=== PATIENT | female | born 1955 | race Hispanic/Latino ===

== ENCOUNTER 2018-10-16 08:24 | Day surgery (SDC) | payer BC ==
[2018-10-16] MEDS ORDERED: TETRACAINE 0.5% OS PRN (08:48)
[2018-10-16] MEDS: VIGAMOX OS SCH ×3 (09:10→09:20)
[2018-10-16] MEDS ORDERED: VERSED ONE ×2 (09:44→11:02)
[2018-10-16] MEDS ORDERED: SUBLIMAZE ONE (09:45)
[2018-10-16] MEDS ORDERED: BSS OS ONE (11:11)
--- NOTE | 2018-10-16 11:21 | Operative Report ---
Operative Report Operative Report: 10/16/2018 PREOPERATIVE DIAGNOSIS: Severe dry eyes and Anitha nodules left eye POSTOPERATIVE DIAGNOSIS: Same OPERATIVE PROCEDURE: Excision of of Salzmann nodule and amniotic graft membrane left eye SURGEON: Sadie Carrillo M.D. BILL CHECKER SURGEON: none ANESTHESIA: Monitored anesthesia care SPINNING BATH PATROLLER: COMPLICATIONS: None ALLERGIES: NKDA PREOPERATIVE NOTE: The risks, benefits and alternatives of surgery were explained to the patient who after confirmining understanding elected to pro ceed with surgery. The risks discussed included but were not limited to infection, further surgery, loss of vision, loss of the eye. The patient had multiple opportunities to ask questions and have them answered. Preoperative instruction sheet was provided and explained to the patient and/or family. PROGNOSIS: Excellent INDICATIONS FOR SURGERY: Distortion of vision from the lesion. Without treat ment, permanent visual loss is expected. OPERATIVE REPORT: The patient was taken into the preoperative area and then sedated and monitored by Anesthesia. The patient was prepped by applying a Betadine scrub to the periorbital area, the adjacent cheek, and the forehead. The prepped areas were dried with sterile gauze. The patient was draped, and a speculum was placed between the eyelids. The nodule was dissected off the cornea with a Tooke knife. Fine-tooth forceps were used carefully to elevate the graft and moved to thecornea. It was moved carefully to make sure that first of all the epithelial side remained upward . After the graft was found to be suitable for the area to be covered, it was sutured using 10-0 nylon superiorly and inferiorly. MEDICATIONS APPLIED AT END OF SURGERY: bandage Contact lens was placed onto the eye fallowed by the application of Vigamox. DISCHARGE SUMMARY: The patient was released in stable condition. The patient and those with the patient were given a written sheet of postoperative instructions and counseling on any abnormal laboratory studies. They are to call immediately for difficulties.
--- NOTE | 2018-10-16 11:22 | Short Stay Summary ---
Short Stay Documentation Date of service: 10/16/18 - History H&P: obtained from office - Allergies and Medications Current Medications: Allergies Penicillins Allergy (Verified 10/14/18 14:03) Itching, rash Home Medications Medication Instructions Recorded Confirmed Last Taken Type Celecoxib [celeBREX] 200 mg PO DAILY 10/14/18 10/14/18 10/15/18 History Escitalopram [Lexapro] 10 mg PO DAILY 10/14/18 10/14/18 10/15/18 History Levothyroxine [Synthroid] 100 mcg PO QAM 10/14/18 10/16/18 10/15/18 10:00 History Ranitidine HCl [Zantac 150 MG TAB] 150 mg PO DAILY 10/14/18 10/14/18 10/15/18 History metFORMIN [Glucophage] 500 mg PO BID 10/14/18 10/16/18 10/15/18 17:00 History Active Medications Moxifloxacin HCl (Vigamox) 1 drops OS Q5MIN [facility] Stop: 10/16/18 23:59 Last Admin: 10/16/18 09:20 Dose: 1 drops Documented by: Prednisolone Acetate (Pred Forte 1%) 1 drops OS QID [facility] Tetracaine HCl (Tetracaine 0.5%) 1 drops OS Q5M PRN PRN Reason: Pain, Mild (1-3) Stop: 10/16/18 23:59 Last Admin: 10/16/18 09:09 Dose: 1 drops Documented by: - Brief post op/procedure progress note Date of procedure: 10/16/18 Pre-op diagnosis: Anitha nodule left eye Post-op diagnosis: same Procedure: Anterior lamellar keratectomy left eye Anesthesia: MAC, local Surgeon: LYNN RATLIFF Estimated blood loss: none Pathology: none Condition: stable - Disposition Condition at discharge: Good Disposition: DC-01 TO HOME OR SELFCARE - Discharge Diagnoses (1) 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
[2018-10-16] MEDS ORDERED: PRED FORTE 1% OS SCH (14:00)
--- NOTE | 2018-10-16 14:20 | Anesthesia Consultation ---
Anesthesia Consult and Med Hx Date of service: 10/16/18 - Airway Anesthetic Teeth Evaluation: Good ROM Head & Neck: Adequate Mental/Hyoid Distance: Adequate Mallampati Class: Class III Intubation Access Assessment: Possibly Difficult - Pulmonary Exam CTA: Yes - Cardiac Exam Cardiac Exam: RRR - Pre-Operative Health Status ASA Pre-Surgery Classification: ASA3 Proposed Anesthetic Plan: MAC - Pulmonary Hx Sleep Apnea: Yes (No CPAP) - Central Nervous System Hx Seizures: Yes (As an infant) Hx Psychiatric Problems: No - Other Systems Hx Alcohol Use: Yes (Occas) Hx Cancer: No
--- NOTE | 2018-10-16 14:20 | Anesthesia Day of Surgery ---
Anesthesia Day of Surgery - Day of Surgery Patient Examined: Yes Patient H&P Reviewed: Yes Patient is NPO: Yes
--- NOTE | 2018-10-16 14:22 | Post Anesthesia Evaluation ---
- Post Anesthesia Evaluation Patient Participated: Yes Airway Patent: Yes Stable Respiratory Function: Yes Nausea/Vomiting: No Temp > 96.8F: Yes Pain Manageable: Yes Adequeate Hydration: Yes Anesthesia Complications: No
[2018-10-16 18:11] VITALS: BP 108/66
== END 2018-10-16 12:55 | disposition home or self-care (01) ==
LOC: OR 08:24
DX: H18.452 Nodular corneal degeneration, left eye (principal); G47.30 Sleep apnea, unspecified; M19.90 Unspecified osteoarthritis, unspecified site; K21.9 Gastro-esophageal reflux disease without esophagitis; Z90.49 Acquired absence of other specified parts of digestive tract; Z72.89 Other problems related to lifestyle; Z98.890 Other specified postprocedural states; Z79.899 Other long term (current) drug therapy; Z98.42 Cataract extraction status, left eye; Z98.41 Cataract extraction status, right eye; Z88.0 Allergy status to penicillin; Z79.84 Long term (current) use of oral hypoglycemic drugs
CPT/HCPCS: 65400; 65780; 82962; J2250; J3010

== ENCOUNTER 2018-12-25 07:27 | Day surgery (SDC) | payer BC ==
[2018-12-25] MEDS ORDERED: TETRACAINE 0.5% ONE (08:43)
[2018-12-25] MEDS: AK-Dilate OD SCH ×3 (08:50→09:00)
[2018-12-25] MEDS: MYDRIACYL OD SCH ×3 (08:50→09:00)
[2018-12-25] MEDS: VIGAMOX OD SCH ×3 (08:50→09:00)
--- NOTE | 2018-12-25 09:22 | Anesthesia Consultation ---
Anesthesia Consult and Med Hx Date of service: 12/25/18 - Airway Anesthetic Teeth Evaluation: Good ROM Head & Neck: Adequate Mental/Hyoid Distance: Adequate Mallampati Class: Class I Intubation Access Assessment: Good - Pulmonary Exam CTA: Yes - Cardiac Exam Cardiac Exam: RRR - Pre-Operative Health Status ASA Pre-Surgery Classification: ASA3 Proposed Anesthetic Plan: MAC - Pulmonary Hx Smoking: No Hx Sleep Apnea: Yes (no CPAP) - Cardiovascular System Hx Hypertension: No Hx Heart Attack/AMI: No - Central Nervous System CVA: No Hx Psychiatric Problems: Yes (anxiety) - Gastrointestinal Hx Gastroesophageal Reflux Disease: Yes - Endocrine Hx Hypothyroidism: Yes - Other Systems Hx Alcohol Use: Yes (Occas) Hx Substance Use: No Hx Cancer: No
--- NOTE | 2018-12-25 09:23 | Anesthesia Day of Surgery ---
Anesthesia Day of Surgery - Day of Surgery Patient Examined: Yes Patient H&P Reviewed: Yes Patient is NPO: Yes
[2018-12-25] MEDS ORDERED: TETRACAINE 0.5% OD NR (09:30)
[2018-12-25] MEDS ORDERED: VERSED ONE (09:43)
[2018-12-25] MEDS ORDERED: SUBLIMAZE ONE (09:43)
[2018-12-25] MEDS ORDERED: MIOSTAT OD ONE (10:16)
--- NOTE | 2018-12-25 10:26 | Operative Report ---
Operative Report Operative Report: PATIENT'S NAME: DATE OF : DATE OF SURGERY: 12/25/2018 PREOPERATIVE DIAGNOSIS: Cataract and Astigmatism right Eye POSTOPERATIVE DIAGNOSIS: Same OPERATIVE PROCEDURE: Phacoemulsification with intraocular lens implantation, right eye Toric SURGEON: Sadie Carrillo M.D. LENS: [id number] 9.5 at 150 ANESTHESIA: Monitored anesthesia care in combination with topical and intracameral anesthesia because of the established specific risk of reflux, arrhythmias, or anxiety attacks associated with ocular manipulation, as well as the difficulty of the sports analyst to manage such potentially catastrophic events while simultaneously attempting to complete the surgical procedure and was deemed necessary for the patient's safety to have a Nurse Digitizer present during the procedure whenever possible. A Nurse Digitizer was utilized to regulate the intravenous sedation of the patient so the patient was cooperative yet not asleep in order for the patient to successfully maintain fixation of the eye on the operating light of the microscope. COMPLICATIONS: No surgical complications. No blood loss. ALLERGIES: Penicillin PROGNOSIS: Excellent INDICATIONS FOR SURGERY: The patient is undergoing surgery in the hopes of eliminating or improving these visual difficulties. PROCEDURE: After arriving at the surgery center, the patient was given topical anesthetic and dilating drops, as noted in the record. The patient was then taken into the operating room and given more anesthetic drops. The eyelids, lashes, and lid margins were scrubbed with Betadine solution, and the patient was draped. The Nurse Digitizer administered IV sedation and monitored the patient during the procedure. A speculum was placed between the eyelids, and the patient was asked to fixate on the light of the microscope. The patient has been noted to have pre-existing astigmatism as well as a concern to be left with as little astigmatism as possible after surgery in order to improve their uncorrected visual acuity after surgery.~ They have, therefore, elected to have our option for astigmatism management and have signed a waiver acknowledging their understanding of the process, its benefits and risks, and wish to proceed with this option. Based on the preoperative evaluation of the topography of their corneal mapping of astigmatism, the wound orientation, wound size, and use of a relaxing incision have been utilized to minimize their post operative astigmatism. In some cases a toric, or astigmatic, intraocular lens implant may be used in conjunction with a relaxing incision or in place of one. When an astigmatic lens is used, preoperative evaluation of the topography with careful planning of the lens position and power of the astigmatic correction by lens are all done. ~The calculation of the lens power for the astigmatic correction and the lens orientation of the astigmatic lens is performed separately and subsequently from the normal lens power calculation for the standard cataract lens power needed for standard surgery without astigmatism management. ~In fact, the toric lens power calculation can not be done until the standard lens power calculations are performed and finished - so that is a totally separate part of the preoperative planning. The eye was then fixated with a round martinez, which would damage the conjunctival tissues or vessel, and a stab incision was made in the peripheral clear cornea into the anterior chamber. Viscoelastic was next used to fill the anterior chamber. The eye was once again fixated with the round martinez and a keratome was used make an incision in clear cornea peripherally on my right hand side temporally. Hydrodissection was carried out utilizing a U-shaped cannula and balanced salt solution to delineate the cortical material from the capsule and the nucleus from the cortical material. The phaco tip was introduced into the eye and used to remove the anterior cortical material in the area of the capsulotomy. Then the phaco tip was buried into the nucleus, and a chopping instrument was introduced into the eye and used to provide countertraction in the nucleus between this instrument and the phaco tip fracturing the nucleus. This procedure was repeated multiple times, providing multiple small segments of the lens, and then the phaco tip was used to remove each of these segments. An I/A tip was then used to remove the remaining cortex. An one-piece, acrylic intraocular lens was then placed into an inserting cartridge. The tip of the inserting cartridge was introduced into the keratome incision and into the anterior chamber. The implant was gently advanced through the cartridge and into the eye, where it unfolded, and both haptics were placed in the capsular bag, where it centered nicely and appeared to be well fixated. Prior to prepping the patient, the patient was asked to sit up on the operative bed and look across the room. ~Utilizing a special marking instrument, the cardinal meridians at 3:00, 6:00, and 9:00 were marked with Gentian lamar.~ These lisa were used later in the surgery as reference lisa to identify the proper location of the axis for the placement of the astigmatic, or toric, intraocular lens.~ The axis was marked with Gentian lamar prior to entering the eye.~ After placement of the intraocular lens implant and removal of the viscoelastic from both the capsular bag and anterior chamber, the lens was positioned so it was perfectly aligned along this axis. The orientation was rechecked once the wounds were hydrated and the integrity of the wounds was verified. After placement of the intraocular lens, the I~and~A handpiece was placed back into the eye and used to remove the viscoelastic, including viscoelastic that was behind the optic of the intraocular lens. The anterior chamber was then filled with balanced salt solution, and hydration of the wound was used to cause swelling of the wound and more appropriate watertight closure. When the wound was found to be firm, the patient was asked to comment on how bright the light was. If there was no light perception at all or if the light was substantially dimmer than during the rest of the surgery, the amount of fluid in the eye was decompressed to lower the intraocular pressure until the patient could see the bright light again. This was done to avoid any damage or decreased blood flow to the optic nerve. MEDICATIONS APPLIED AT END OF SURGERY: One drop vigamox and Pred Forte The patient was given a shield to wear at night and was instructed not to rub or push on the eye. DISCHARGE SUMMARY: The patient was released in stable condition. The patient and those with the patient were given a written sheet of postoperative instructions and counseling on any abnormal laboratory studies. The patient is to see us tomorrow for follow-up in the office and is to call immediately for any difficulties. Sadie Carrillo M.D. Date
--- NOTE | 2018-12-25 10:27 | Short Stay Summary ---
Short Stay Documentation Date of service: 12/25/18 - History H&P: obtained from office - Allergies and Medications Current Medications: Allergies Penicillins Allergy (Verified 12/24/18 16:40) Itching, rash Home Medications Medication Instructions Recorded Confirmed Last Taken Type Celecoxib [celeBREX] 200 mg PO DAILY 10/14/18 12/24/18 12/24/18 History Escitalopram [Lexapro] 10 mg PO DAILY 10/14/18 12/24/18 12/24/18 History Levothyroxine [Synthroid] 100 mcg PO QAM 10/14/18 12/25/18 12/25/18 04:00 History Ranitidine HCl [Zantac 150 MG TAB] 150 mg PO DAILY 10/14/18 12/24/18 12/24/18 History metFORMIN [Glucophage] 500 mg PO BID 10/14/18 12/24/18 12/24/18 History Active Medications Acetazolamide (Diamox) 500 mg PO ONCE ONE Stop: 12/25/18 10:31 Moxifloxacin HCl (Vigamox) 1 drops OD Q5MIN [facility] Stop: 12/25/18 23:59 Last Admin: 12/25/18 09:00 Dose: 1 drops Documented by: Phenylephrine HCl (Ak-Dilate) 1 drops OD Q5MIN [facility] Stop: 12/25/18 23:59 Last Admin: 12/25/18 09:00 Dose: 1 drops Documented by: Prednisolone Acetate (Pred Forte 1%) 1 drops OD QID [facility] Tropicamide (Mydriacyl) 1 drops OD Q5MIN [facility] Stop: 12/25/18 23:59 Last Admin: 12/25/18 09:00 Dose: 1 drops Documented by: - Brief post op/procedure progress note Date of procedure: 12/25/18 Pre-op diagnosis: cataract and astigmatism right eye Post-op diagnosis: same Procedure: Phacoemulsification retired lens insertion right eye Anesthesia: MAC, local Surgeon: LYNN RATLIFF Estimated blood loss: none Pathology: none Condition: stable - Disposition Condition at discharge: Good Disposition: DC-01 TO HOME OR SELFCARE - Discharge Diagnoses (1) Cortical age-related cataract of right eye Status: Resolved (2) Astigmatism of right eye Status: Resolved Qualifiers: Astigmatism type: regular Qualified Code(s): H52.221 - Regular astigmatism, right eye Short Stay Discharge Plan Follow up with: JORDY HORNE [Other] - 7 Days
[2018-12-25] MEDS ORDERED: DIAMOX PO ONE (10:30)
[2018-12-25] MEDS ORDERED: PRED FORTE 1% ONE (10:46)
[2018-12-25 11:03] VITALS: BP 128/78
[2018-12-25] MEDS ORDERED: PRED FORTE 1% OD SCH (14:00)
== END 2018-12-25 11:07 | disposition home or self-care (01) ==
LOC: OR 07:27
DX: E11.36 Type 2 diabetes mellitus with diabetic cataract (principal); H25.011 Cortical age-related cataract, right eye; H52.201 Unspecified astigmatism, right eye; H18.452 Nodular corneal degeneration, left eye; G47.30 Sleep apnea, unspecified; K21.9 Gastro-esophageal reflux disease without esophagitis; M19.90 Unspecified osteoarthritis, unspecified site; E03.9 Hypothyroidism, unspecified; F41.9 Anxiety disorder, unspecified; Z98.890 Other specified postprocedural states; Z80.3 Family history of malignant neoplasm of breast; Z80.8 Family history of malignant neoplasm of other organs or systems; Z79.899 Other long term (current) drug therapy; Z79.84 Long term (current) use of oral hypoglycemic drugs; Z98.42 Cataract extraction status, left eye; Z90.49 Acquired absence of other specified parts of digestive tract; Z90.710 Acquired absence of both cervix and uterus; Z72.89 Other problems related to lifestyle
CPT/HCPCS: 66984; 82962; J2250; J3010; V2630

== ENCOUNTER 2019-01-08 06:18 | Day surgery (SDC) | payer BC ==
[~2019-01-08 06:18] MED LIST: MIOSTAT ONE; TETRACAINE 0.5% OS PRN
[2019-01-08] MEDS: AK-Dilate OS SCH ×3 (07:00→07:10)
[2019-01-08] MEDS: VIGAMOX OS SCH ×3 (07:00→07:10)
[2019-01-08] MEDS: MYDRIACYL OS SCH ×3 (07:00→07:10)
[2019-01-08] MEDS ORDERED: VERSED ONE (07:25)
[2019-01-08] MEDS ORDERED: SUBLIMAZE ONE (07:26)
--- NOTE | 2019-01-08 07:34 | Anesthesia Consultation ---
Anesthesia Consult and Med Hx Date of service: 01/08/19 - Airway Anesthetic Teeth Evaluation: Good ROM Head & Neck: Adequate Mental/Hyoid Distance: Adequate Mallampati Class: Class II Intubation Access Assessment: Good - Pulmonary Exam CTA: Yes - Cardiac Exam Cardiac Exam: No Murmur - Pre-Operative Health Status ASA Pre-Surgery Classification: ASA3 Proposed Anesthetic Plan: MAC - Pulmonary Hx Smoking: No Hx Sleep Apnea: Yes (No CPAP) - Cardiovascular System Hx Hypertension: No Hx Heart Attack/AMI: No - Central Nervous System Hx Seizures: Yes (As an infant) CVA: No Hx Psychiatric Problems: Yes - Gastrointestinal Hx Gastroesophageal Reflux Disease: Yes - Endocrine Hx Hypothyroidism: Yes - Other Systems Hx Alcohol Use: Yes (Occas) Hx Cancer: No
--- NOTE | 2019-01-08 07:34 | Anesthesia Day of Surgery ---
Anesthesia Day of Surgery - Day of Surgery Patient Examined: Yes Patient H&P Reviewed: Yes Patient is NPO: Yes
[2019-01-08] MEDS ORDERED: PRED FORTE 1% ONE (07:48)
[2019-01-08] MEDS ORDERED: MIOSTAT OS ONE (08:01)
[2019-01-08] MEDS ORDERED: WATER FOR IRRIG STERILE IR ONE (08:01)
[2019-01-08] MEDS ORDERED: DIAMOX PO NR (08:16)
[2019-01-08] MEDS ORDERED: DIAMOX ONE (08:37)
--- NOTE | 2019-01-08 08:47 | Operative Report ---
Operative Report Operative Report: PATIENT'S NAME: DATE OF : DATE OF SURGERY: 01/08/2019 PREOPERATIVE DIAGNOSIS: Cataract and Astigmatism left Eye POSTOPERATIVE DIAGNOSIS: Same OPERATIVE PROCEDURE: Phacoemulsification with intraocular lens implantation, left eye Toric SURGEON: Sadie Carrillo M.D. LENS: [id number] 11.5 AT 95 ANESTHESIA: Monitored anesthesia care in combination with topical and intracameral anesthesia because of the established specific risk of reflux, arrhythmias, or anxiety attacks associated with ocular manipulation, as well as the difficulty of the fly raiser lockstitch to manage such potentially catastrophic events while simultaneously attempting to complete the surgical procedure and was deemed necessary for the patient's safety to have a Nurse Director Of Restaurant present during the procedure whenever possible. A Nurse Director Of Restaurant was utilized to regulate the intravenous sedation of the patient so the patient was cooperative yet not asleep in order for the patient to successfully maintain fixation of the eye on the operating light of the microscope. COMPLICATIONS: No surgical complications. No blood loss. ALLERGIES: PCN PROGNOSIS: Excellent INDICATIONS FOR SURGERY: The patient is undergoing surgery in the hopes of eliminating or improving these visual difficulties. PROCEDURE: After arriving at the surgery center, the patient was given topical anesthetic and dilating drops, as noted in the record. The patient was then taken into the operating room and given more anesthetic drops. The eyelids, lashes, and lid margins were scrubbed with Betadine solution, and the patient was draped. The Nurse Director Of Restaurant administered IV sedation and monitored the patient during the procedure. A speculum was placed between the eyelids, and the patient was asked to fixate on the light of the microscope. The patient has been noted to have pre-existing astigmatism as well as a concern to be left with as little astigmatism as possible after surgery in order to improve their uncorrected visual acuity after surgery.~ They have, therefore, elected to have our option for astigmatism management and have signed a waiver acknowledging their understanding of the process, its benefits and risks, and wish to proceed with this option. Based on the preoperative evaluation of the topography of their corneal mapping of astigmatism, the wound orientation, wound size, and use of a relaxing incision have been utilized to minimize their post operative astigmatism. In some cases a toric, or astigmatic, intraocular lens implant may be used in conjunction with a relaxing incision or in place of one. When an astigmatic lens is used, preoperative evaluation of the topography with careful planning of the lens position and power of the astigmatic correction by lens are all done. ~The calculation of the lens power for the astigmatic correction and the lens orientation of the astigmatic lens is performed separately and subsequently from the normal lens power calculation for the standard cataract lens power needed for standard surgery without astigmatism management. ~In fact, the toric lens power calculation can not be done until the standard lens power calculations are performed and finished - so that is a totally separate part of the preoperative planning. The eye was then fixated with a round martinez, which would damage the conjunctival tissues or vessel, and a stab incision was made in the peripheral clear cornea into the anterior chamber. Viscoelastic was next used to fill the anterior chamber. The eye was once again fixated with the round martinez and a keratome was used make an incision in clear cornea peripherally on my right hand side temporally. Hydrodissection was carried out utilizing a U-shaped cannula and balanced salt solution to delineate the cortical material from the capsule and the nucleus from the cortical material. The phaco tip was introduced into the eye and used to remove the anterior cortical material in the area of the capsulotomy. Then the phaco tip was buried into the nucleus, and a chopping instrument was introduced into the eye and used to provide countertraction in the nucleus between this instrument and the phaco tip fracturing the nucleus. This procedure was repeated multiple times, providing multiple small segments of the lens, and then the phaco tip was used to remove each of these segments. An I/A tip was then used to remove the remaining cortex. An one-piece, acrylic intraocular lens was then placed into an inserting c artridge. The tip of the inserting cartridge was introduced into the keratome incision and into the anterior chamber. The implant was gently advanced through the cartridge and into the eye, where it unfolded, and both haptics were placed in the capsular bag, where it centered nicely and appeared to be well fixated. Prior to prepping the patient, the patient was asked to sit up on the operative bed and look across the room. ~Utilizing a special marking instrument, the cardinal meridians at 3:00, 6:00, and 9:00 were marked with Gentian lamar.~ These lisa were used later in the surgery as reference lisa to identify the proper location of the axis for the placement of the astigmatic, or toric, intraocular lens.~ The axis was marked with Gentian lamar prior to entering the eye.~ After placement of the intraocular lens implant and removal of the viscoelastic from both the capsular bag and anterior chamber, the lens was positioned so it was perfectly aligned along this axis. The orientation was rechecked once the wounds were hydrated and the integrity of the wounds was verified. After placement of the intraocular lens, the I~and~A handpiece was placed back into the eye and used to remove the viscoelastic, including viscoelastic that was behind the optic of the intraocular lens. The anterior chamber was then filled with balanced salt solution, and hydration of the wound was used to cause swelling of the wound and more appropriate watertight closure. When the wound was found to be firm, the patient was asked to comment on how bright the light was. If there was no light perception at all or if the light was substantially dimmer than during the rest of the surgery, the amount of fluid in the eye was decompressed to lower the intraocular pressure until the patient could see the bright light again. This was done to avoid any damage or decreased blood flow to the optic nerve. MEDICATIONS APPLIED AT END OF SURGERY: One drop vigamox and Pred Forte The patient was given a shield to wear at night and was instructed not to rub or push on the eye. DISCHARGE SUMMARY: The patient was released in stable condition. The patient and those with the patient were given a written sheet of postoperative instructions and counseling on any abnormal laboratory studies. The patient is to see us tomorrow for follow-up in the office and is to call immediately for any difficulties. Sadie Carrillo M.D. Date
--- NOTE | 2019-01-08 08:48 | Short Stay Summary ---
Short Stay Documentation Date of service: 01/08/19 - History H&P: obtained from office - Allergies and Medications Current Medications: Allergies Penicillins Allergy (Verified 01/07/19 12:28) Itching, rash Home Medications Medication Instructions Recorded Confirmed Last Taken Type Celecoxib [celeBREX] 200 mg PO DAILY 10/14/18 01/08/19 01/07/19 History Escitalopram [Lexapro] 10 mg PO DAILY 10/14/18 01/08/19 01/07/19 History Levothyroxine [Synthroid] 100 mcg PO QAM 10/14/18 01/08/19 01/07/19 History Ranitidine HCl [Zantac 150 MG TAB] 150 mg PO DAILY 10/14/18 01/08/19 01/07/19 History metFORMIN [Glucophage] 500 mg PO BID 10/14/18 01/08/19 01/07/19 History Active Medications Acetazolamide (Diamox) 500 mg PO ONCE NR Stop: 01/08/19 10:00 Last Admin: 01/08/19 08:39 Dose: 500 mg Documented by: Moxifloxacin HCl (Vigamox) 1 drops OS Q5M MECHE Phenylephrine HCl (Ak-Dilate) 1 drops OS Q5M MECHE Prednisolone Acetate (Pred Forte 1%) 1 drops OS ONCE NR Stop: 01/08/19 20:00 Last Admin: 01/08/19 08:25 Dose: 1 drops Documented by: Tetracaine HCl (Tetracaine 0.5%) 1 drops OS Q5M PRN PRN Reason: DIRECTED Tropicamide (Mydriacyl) 1 drops OS Q5M MECHE - Brief post op/procedure progress note Date of procedure: 01/08/19 Pre-op diagnosis: Recommend astigmatism left eye Post-op diagnosis: same Procedure: Phacoemulsification with toric lens insertion left eye Anesthesia: MAC, local Surgeon: LYNN RATLIFF Estimated blood loss: none Pathology: none Condition: stable - Disposition Condition at discharge: Good Disposition: DC-01 TO HOME OR SELFCARE - Discharge Diagnoses (1) Cortical age-related cataract of left eye Status: Resolved (2) Astigmatism of left eye Status: Resolved Qualifiers: Astigmatism type: regular Qualified Code(s): H52.222 - Regular astigmatism, left eye Short Stay Discharge Plan Additional Instructions: FOLLOW SURGEON INSTRUCTION SHEETS. Follow up with: JUANA HORNE MD [Primary Care Provider] - 7 Days Forms: Outpatient Surgery DC Inst.
[2019-01-08] MEDS ORDERED: PRED FORTE 1% OS NR (09:00)
[2019-01-08 14:39] VITALS: BP 128/68
== END 2019-01-08 09:00 | disposition home or self-care (01) ==
LOC: OR 06:18
DX: E11.36 Type 2 diabetes mellitus with diabetic cataract (principal); H25.011 Cortical age-related cataract, right eye; H52.201 Unspecified astigmatism, right eye; G47.30 Sleep apnea, unspecified; K21.9 Gastro-esophageal reflux disease without esophagitis; E03.9 Hypothyroidism, unspecified; M19.90 Unspecified osteoarthritis, unspecified site; F41.9 Anxiety disorder, unspecified; Z72.89 Other problems related to lifestyle; Z79.899 Other long term (current) drug therapy; Z79.84 Long term (current) use of oral hypoglycemic drugs; Z98.42 Cataract extraction status, left eye; Z90.49 Acquired absence of other specified parts of digestive tract; Z90.710 Acquired absence of both cervix and uterus; Z98.890 Other specified postprocedural states
CPT/HCPCS: 66984; 82962; J2250; J3010; V2630